=== PATIENT | female | born 1975 | race Caucasian/White ===

== ENCOUNTER 2017-08-19 09:47 | Emergency (ER) | payer SELFPAY ==
--- NOTE | 2017-08-19 10:42 | UC ---
Discharge - Sign-Out/Discharge Documenting (check all that apply): Patient Departure - Discharge Plan Condition: Stable Disposition: HOME Referrals: [facility] [Outside] - 08/24/17 9:30 am Additional Instructions: Please follow up with Dr. Bai at [facility] for results of your labwork. We have made an appointment for you on Wednesday08/24/17 at 9:30am - Billing Disposition and Condition Condition: STABLE Disposition: Home
[2017-08-20 12:13] LABS: Hematocrit 40 % (35-47); Hemoglobin 13.6 g/dl (12.0-16.0); Mean Corpuscular HGB Conc 34 g/dl (31-36); Mean Corpuscular Hemoglobin 30 pg (27-31); Mean Corpuscular Volume 89 fL (80-97); Mean Platelet Volume 8.5 um3 (7.4-10.4); Platelet Count 313 10^3/ul (150-450); Red Blood Count 4.49 10^6/ul (4.00-5.40); Red Cell Distribution Width 14 % (10.5-15); White Blood Count 5.9 10^3/ul (3.5-10.8)
[2017-08-20 12:26] LABS: EGFR Non-African American 93.2 (>60)
== END 2017-08-19 11:20 | disposition home or self-care (01) ==
LOC: OHEAST 09:47
DX: Z02.1 Encounter for pre-employment examination (principal)
CPT/HCPCS: 36415; 80053; 80061; 85027; 85652; 99201; G0463